=== PATIENT | male | born 1935 | race Caucasian/White ===

== ENCOUNTER 2022-12-06 08:03 | Day surgery (SDC) | payer MEDICARE, BC ==
[2022-12-06] VITALS (7 sets, daily range): BP systolic 118–148; BP diastolic 43–65
[~2022-12-06] VITALS: Ht 170.2 cm; Wt 71.7 kg
[2022-12-06] MEDS ORDERED: ceFAZolin inj. 2,000 MG in dextrose 5%-water 100 ML IV ONE (08:28)
[2022-12-06] MEDS ORDERED: vancomycin 1,500 MG in NS 300ml IV soln IV ONE (08:28)
[2022-12-06] MEDS ORDERED: METO-395 PO (08:38)
[2022-12-06] MEDS ORDERED: APIX5TAB3 PO (08:38)
[2022-12-06 09:37] LABS: HEMATOCRIT 37.1 % (42.0-52.0); HEMOGLOBIN 11.4 g/dl (14.0-17.9); MEAN CORPUSCULAR HGB CONC 30.7 g/dL (33.0-36.5); MEAN CORPUSCULAR VOLUME 61.7 FL (78-98); MEAN PLATELET VOLUME 8.7 FL (7.4-10.4); PLATELET COUNT 218 X10'3 (140-440); RED CELL DISTRIBUTION WIDTH 16.4 % (11.5-14.5); WHITE BLOOD COUNT 5.9 X10'3 (4.5-11.0)
[2022-12-06 09:45] LABS: ALBUMIN 4.3 G/DL (3.4-5.0); ANION GAP 5 (8-16); BLOOD UREA NITROGEN 18 MG/DL (7-18); BUN/CREATININE RATIO 19.4 (5.4-32.0); CALCIUM 9.4 MG/DL (8.5-10.1); CHLORIDE 105 MMOL/L (99-107); CREATININE 0.93 MG/DL (0.60-1.10); GLUCOSE 94 MG/DL (70-104); MAGNESIUM 2.3 MG/DL (1.5-2.4); POTASSIUM 4.2 MMOL/L (3.5-5.1); SODIUM 140 MMOL/L (135-145); TOTAL CARBON DIOXIDE 30.5 MMOL/L (24-32); eGFR 77 ML/MIN
[2022-12-06 10:08] LABS: ANISOCYTOSIS 1+; PLATELET ESTIMATE NORMAL; TOTAL CELLS COUNTED 100
[2022-12-06 10:09] LABS: ELLIPTOCYTES 1+; HYPOCHROMASIA 2+; MICROCYTOSIS 2+; SCHISTOCYTES 1+; TARGET CELLS FEW; TEAR DROP CELLS FEW
[2022-12-06] MEDS ORDERED: LIDOCAINE 2%/EPI 1:100,000 inj. Multi-dose 20 ML VIAL ONE (10:18)
[2022-12-06] MEDS ORDERED: midazolam 1 mg/ML 2ml injection ONE (10:19)
[2022-12-06] MEDS ORDERED: fentaNYL/PF 50MCG/1 ML 2ML syringe ONE (10:19)
[2022-12-06] MEDS ORDERED: vancomycin 1,000mg inj ONE (10:19)
[2022-12-06] MEDS ORDERED: normal saline 1000ml 1,000 ML IV SCH (13:05)
== END 2022-12-06 14:30 | disposition home or self-care (01) ==
LOC: SSTAY O 08:03
PROVIDERS: ATTEND Internal Medicine Cardiovascular Disease
DX: Z45.010 Encounter for checking and testing of cardiac pacemaker pulse generator [battery] (principal); I08.3 Combined rheumatic disorders of mitral, aortic and tricuspid valves; I44.2 Atrioventricular block, complete; I47.20 Ventricular tachycardia, unspecified; D56.3 Thalassemia minor; I48.3 Typical atrial flutter; I49.3 Ventricular premature depolarization; I10 Essential (primary) hypertension; Z79.01 Long term (current) use of anticoagulants; Z79.899 Other long term (current) drug therapy; Z98.890 Other specified postprocedural states; Z72.89 Other problems related to lifestyle
CPT/HCPCS: 33228; 36415; 80048; 83735; 85025; 85610; 93005; 93308; 99152; 99153; C1785; J2250; J3010; J3370; J7030; J7040; 85007